=== PATIENT | male | born 1970 | race Native Hawaiian/Other Pacific Islander ===

== ENCOUNTER 2018-06-13 13:58 | Emergency (ER) | payer OTHER ==
[~2018-06-13] VITALS: Ht 180.3 cm; Wt 72.6 kg
[2018-06-13 17:15] VITALS: BP 105/58; TEMP 97.7
[2018-06-13] MEDS ORDERED: DIVA500T2 PO (22:43)
[2018-06-13] MEDS ORDERED: ABILIFY20 MG PO (22:44)
== END 2018-06-13 17:15 | disposition home or self-care (01) ==
LOC: ED 13:58
DX: F31.9 Bipolar disorder, unspecified (principal); F60.2 Antisocial personality disorder
CPT/HCPCS: 36415; 99281

== ENCOUNTER 2018-06-13 22:27 | Outpatient (CLI) | payer OTHER ==
[2018-06-13] MEDS ORDERED: DIVA500T2 PO (22:43)
[2018-06-13] MEDS ORDERED: ABILIFY20 MG PO (22:44)
== END 2018-06-13 22:35 | disposition short-term general hospital (02) ==
LOC: AMB 22:27
DX: R07.89 Other chest pain (principal); R53.1 Weakness
CPT/HCPCS: A0425; A0427

== ENCOUNTER 2018-06-13 22:34 | Emergency (ER) | payer OTHER ==
[~2018-06-13] VITALS: Ht 180.3 cm; Wt 72.6 kg
[2018-06-13] MEDS ORDERED: DIVA500T2 PO (22:43)
[2018-06-13] MEDS ORDERED: ABILIFY20 MG PO (22:44)
[2018-06-13 23:03] LABS: POTASSIUM 3.7 mmol/L (3.6-5.2); SODIUM 140 mmol/L (136-145)
[2018-06-13 23:08] LABS: PLATELET COUNT 244 K/uL (142-355)
[2018-06-14 11:30] VITALS: BP 108/74; TEMP 98.8
== END 2018-06-14 13:15 | disposition other institution (70) ==
LOC: ED 22:34
PROVIDERS: Internal Medicine
DX: R07.89 Other chest pain (principal); R45.851 Suicidal ideations; R45.850 Homicidal ideations; F19.10 Other psychoactive substance abuse, uncomplicated
CPT/HCPCS: 36415; 80053; 80307; 80320; 80329; 82550; 84484; 85027; 93005; 99285